=== PATIENT | female | born 1970 | race Caucasian/White ===

== ENCOUNTER → 2016-11-10 | Outpatient (CLI) | payer BC ==
[~2016-11-10] MED LIST: ESTRADIOL PATCH EXT; IMITREX50 MG PO; MULTIVITAMINS1 EAC3 PO; PRILOSEC PO; PROBIOTIC1 EAC2 PO; RANITIDINE HCL300 M1 PO
--- NOTE | ~2016-11-10 | CR97 ---
[facility] A Service of [facility] & [facility] RADIOLOGY TEXT RESULTS PATIENT: DEMAR BALLARD LOCATION: [facility] : 74 UNIT #: [id number] AGE: [address]: Conrado Centeno III, MD SEX: F ORDER DR: [id number] [facility]. [place], [place] [address] [id number] O MR#: [id number] Acc #: [id number] NAME: DEMAR BALLARD : 1970 SEX: F STUDY DATE/TIME: 11/10/2016 12:29 UNIT: [facility] ROOM: STUDY DESCRIPTION: CR Esophagram Attending Physician: Conrado Centeno III, M.D. Referring Physician: Conrado Centeno III, M.D. Ordering Physician: Conrado Centeno III, M.D. MEDICAL IMAGING REPORT This report is preliminary unless electronic signature is present REVISED REPORT SEE ADDENDUM EXAM Fluoroscopic esophagram COMPARISON None INDICATIONS 46-year-old female with dysphagia and symptoms of gastroesophageal reflux for the past 6 months. Patient reports gastric lap band placement in [place] in 2009. Evaluate for gastric lap band complication. FINDINGS Total fluoro time was 0.4 minutes. A total of 14 images were obtained. The patient was administered thick barium by mouth, with imaging of the esophagus at 3 frames per second in the upright left posterior oblique position. Peristaltic activity of the esophagus is normal. There is no evidence of esophageal stricture. No mucosal lesions of the esophagus are seen. There is no extrinsic mass effect on the esophagus. There is no evidence of hiatal hernia. The patient's gastric lap band is abnormally positioned below the gastric fundus at the junction of the fundus and body, of uncertain acuity. There is delayed passage of contrast from the gastric fundus into the gastric body. There is also subjectively delayed gastric emptying. There is spontaneous gastroesophageal reflux to the level of the superior esophagus at the junction of the superior and middle thirds. There is contamination of the patient's clothing with barium seen over the left hilar region on AP view post barium administration. IMPRESSION 1. Malpositioned or slipped gastric lap band collar of uncertain acuity. 2. The gastric lap band collar is at the junction of the gastric fundus STS. [facility] A Service of [facility] & [facility] RADIOLOGY TEXT RESULTS PATIENT: DEMAR BALLARD LOCATION: [facility] : 74 UNIT #: [id number] AGE: [address]: Conrado Centeno III, MD SEX: F ORDER DR: and gastric body and there is delayed passage of contrast from the gastric fundus into the gastric body. There is also severe spontaneous gastroesophageal reflux into the superior esophagus to the level of the junction of the superior and middle thirds of the esophagus. 3. No hiatal hernia. 4. Subjectively delayed gastric emptying. Dictated by... Miguelangel Cornejo M.D. THIS IS AN ELECTRONICALLY VERIFIED REPORT Miguelangel Cornejo M.D. at 11/13/2016 6:33 PM BLM/psc TD: 11/11/2016 00:22 JOB #: [id number] ADDENDUM [employer] AP view also appears to show calculi over the left renal shadow. No convincing evidence of proximal ureteral calculus is seen on this exam. Findings are most consistent with nonobstructive left renal calculi. Clinical correlation recommended. JOB #: [id number] Dictated by... Miguelangel Cornejo M.D. THIS IS AN ELECTRONICALLY VERIFIED REPORT Miguelangel Cornejo M.D. at 11/18/2016 6:17 AM BLM/psc TD: 11/11/2016 00:47 JOB #: [id number] CC: Sovera/invision Please Delete MEDICAL IMAGING REPORT COPY
== END | disposition home or self-care (01) ==
LOC: CRAD 11:36
DX: K21.9 Gastro-esophageal reflux disease without esophagitis (principal); R13.10 Dysphagia, unspecified; K30 Functional dyspepsia; Z98.84 Bariatric surgery status
CPT/HCPCS: 74220

== ENCOUNTER → 2017-01-27 | Day surgery (SDC) | payer BC ==
--- NOTE | ~2017-01-27 | OR ---
Unit #: [id number] #: [id number] Patient: DEMAR BALLARD [id number] [address] [place], [place] [address] [id number] O MR#: [id number] NAME: DEMAR BALLARD ROOM: Date of Procedure: 01/27/2017 Admission Date: 01/27/2017 Surgeon: Conrado Centeno III, M.D. : 1970 Attending Physician: Conrado Centeno III, M.D. OPERATIVE REPORT PREOPERATIVE DIAGNOSIS Paraesophageal hernia with reflux. POSTOPERATIVE DIAGNOSIS Paraesophageal hernia with reflux. PROCEDURE PERFORMED Laparoscopic paraesophageal hernia repair without fundoplication. [employer] Dr. Marko Elaine. SPECIMENS None. COMPLICATIONS None apparent. ESTIMATED BLOOD LOSS Minimal. ANESTHESIA General endotracheal tube anesthesia. INDICATIONS FOR PROCEDURE This is a 46-year-old lady, who presented with some severe reflux, and on upper GI, was noted to have a hiatal hernia. She is here today for laparoscopic hiatal hernia repair. DESCRIPTION OF PROCEDURE After consent was obtained, the patient was brought to the operating room and placed in the supine position. General anesthetic was administered and her abdomen was prepped and draped in standard surgical fashion. I made a 1 cm incision just above and to the left of the umbilicus. I used a Visiport to enter the peritoneal cavity without any difficulty. CO2 pneumoperitoneum was then established. Next, a 5-mm Rand liver retractor was placed in the subxiphoid region. I then placed a 10-mm port in the left upper quadrant and 5-mm port in the left lateral subcostal region and the right upper quadrant. She had some adhesions from where her Lap-Band was placed. I had to take these down to fully mobilize the liver off the anterior portion of the stomach. Once that was done, I was able to reposition the liver retractor, and I had good exposure of the GE Unit #: [id number] #: [id number] Patient: DEMAR BALLARD junction. It should be noted that the Lap-Band seemed to be in the appropriate position. I did have to unbuckle the band to get to the crura to help facilitate the dissection of this. I followed the right crura up and took down the phrenoesophageal ligament. This allowed me to dissect out the paraesophageal hernia. She had a portion of the omentum off the greater curvature of the stomach that was going up into the paraesophageal hernia as well. Once I had this fully dissected out, I reduced the hernia sac completely. I then reapproximated the anterior crura with 2 separate interrupted 0 Ethibond gzoksw-[id number] sutures. This provided good closure of the crura. It should be noted that, I put the band back in place exactly where it was. The hemostasis was excellent, and all needle, sponge, and instrument counts were correct x2. I then removed all the trocars and released the pneumoperitoneum. All the incisions were injected with 0.25% plain Marcaine, and I reapproximated the skin edges with interrupted 4-0 Vicryl subcuticular suture. Steri-Strips were then applied. The patient tolerated the procedure without any problems and returned to the recovery room in stable condition. Dictated by... Conrado Centeno III, M.D. VCL/greyson TD: 01/28/2017 17:05 JOB #: [id number] OPERATIVE REPORT Page 1 of 1 X Conrado Centeno III, MD X PROCEDURE OPERATIVE NOTE
== END | disposition home or self-care (01) ==
LOC: CSUR 05:33
DX: K44.9 Diaphragmatic hernia without obstruction or gangrene (principal); K21.9 Gastro-esophageal reflux disease without esophagitis; E66.9 Obesity, unspecified; Z68.30 Body mass index [BMI] 30.0-30.9, adult; Z87.442 Personal history of urinary calculi; Z90.49 Acquired absence of other specified parts of digestive tract; Z90.710 Acquired absence of both cervix and uterus; Z98.84 Bariatric surgery status
CPT/HCPCS: J0330; J0690; J1100; J1650; J2250; J2710; J3010